=== PATIENT | male | born 1990 | race Caucasian/White ===

== ENCOUNTER 2017-04-12 21:30 | Emergency (ER) | payer SELFPAY ==
[~2017-04-12] VITALS: Ht 182.9 cm; Wt 84.0 kg
[2017-04-12 21:31] VITALS: BP 138/87; PULSE 105; RESP 16; TEMP 99.2; O2SAT 99
[2017-04-12] MEDS ORDERED: BACT800T5 PO (22:35)
[2017-04-12] MEDS ORDERED: CEPH-460 PO (22:35)
[2017-04-12] MEDS ORDERED: TRAM50TA PO (22:35)
[2017-04-12] MEDS ORDERED: IBUP800T23 PO (22:35)
--- NOTE | 2017-04-12 22:35 | PD ---
HPI Chief Complaint: Bite or Sting Time Seen by Provider: 22:33 Travel History International Travel<30 days: No Contact w/Intl Traveler<30days: No Traveled to known affect area: No History of Present Illness HPI 26-year-old male presents to emergency department for evaluation of a painful bump in his left axilla. Patient states he noticed it 2 days ago but has increased in size he is constantly noticing it due to the pain which is constant , exacerbated by touch.. Denies any new exposures. No trauma. No fever or chills. He has no other symptoms to report. PFSH Past Medical History Medical History: Denies Significant Hx Cardiovascular Problems: No Diminished Hearing: No Genitourinary: No Musculoskeletal: No Neurologic: No Reproductive: No Respiratory: No Tetanus Vaccination: Unknown Influenza Vaccination: No Past Surgical History Surgical History: No Previous Surgery Other Surgery: No Social History Alcohol Use: No Tobacco Use: No Substance Use: No Allergies-Medications (Allergen,Severity, Reaction): Coded Allergies: No Known Allergies (Verified , 10/07/13) Reported Meds & Prescriptions Reported Meds & Active Scripts Active Tramadol (Tramadol HCl) 50 Mg Tab 50 Mg PO Q6H PRN Ibuprofen 800 Mg Tab 800 Mg PO Q8H PRN Keflex (Cephalexin) 500 Mg Cap 500 Mg PO Q6H 5 Days Bactrim DS (Sulfamethoxazole-Trimethoprim) 800-160 Mg Tab 1 Tab PO BID Review of Systems Except as stated in HPI: all other systems reviewed are Neg Physical Exam Narrative GENERAL: Well-nourished, well-developed male patient in no acute distress SKIN: There is an indurated area in the [-] left axilla which measures about 3 cm in diameter. It is fluctuant but there is no pointing or drainage. There is a zone of inflammation around it but no lymphangitis. HEAD: Normocephalic. EYES: No scleral icterus. No injection or drainage. NECK: Supple, trachea midline. No JVD or lymphadenopathy. CARDIOVASCULAR: Regular rate and rhythm without murmurs, gallops, or rubs. RESPIRATORY: Breath sounds equal bilaterally. No accessory muscle use. MUSCULOSKELETAL: No cyanosis, or edema. Distal pulses are palpable. Cap refill within normal limits. Data Data Last Documented VS Vital Signs Date Time Temp Pulse Resp B/P Pulse Ox O2 Delivery O2 Flow Rate FiO2 04/12/17 21:31 99.2 105 16 138/87 99 Room Air Orders Sulfamet-Trimeth Ds 800-160 Mg (Bactrim (04/12/17 22:45) Cephalexin (Keflex) (04/12/17 22:45) Acetamin-Hydrocod 325-5 Mg ([place] 5-325 (04/12/17 22:45) Wound Culture And Gram Stain (04/12/17 22:31) MDM Medical Decision Making Medical Screen Exam Complete: Yes Emergency Medical Condition: Yes Medical Record Reviewed: Yes Differential Diagnosis Abscess versus cellulitis versus folliculitis versus erysipelas Narrative Course 26-year-old male presents versus apartment for evaluation of a painful lesion in his left axilla. Physical exam is consistent with an abscess. I&D is complete. Patient tolerated this well. He is given pain control and first dose of antibiotic here in emergency department. Culture sent. Patient is counseled on care and agrees to return immediately with any acute worsening symptoms. Procedures Procedure Narrative INCISION AND DRAINAGE OF ABSCESS: The area was prepped and was sterilely draped. Topical ethyl chloride was used to anesthetize the area. The area was properly anesthetized. A number 11 scalpel was used to make a 1-cm incision across the area of the abscess. Cultures were obtained. The abscess was drained an irrigated with normal saline. Sterile dressing applied. Patient tolerated this well. Diagnosis Primary Impression: Abscess of left axilla Referrals: Primary Care Physician Patient Instructions: Abscess Incision and Drainage (ED), General Instructions Additional Instructions: Warm compresses may help to resolve the area Follow-up with primary care provider Start antibiotic tomorrow morning. Take it until it is all gone Return immediately for any acute worsening of symptoms. Med/Other Pt SpecificInfo: Prescription(s) given Scripts Tramadol 50 Mg Tab50 Mg PO Q6H PRN (PAIN GREATER THAN 5) #15 TAB Ref 0 Prov:Amanda Purvis 04/12/17 Ibuprofen 800 Mg [id number] Mg PO Q8H PRN (Pain/Inflammation) #30 TAB Ref 0 Prov:Amanda Purvis 04/12/17 Cephalexin (Keflex)500 Mg [id number] Mg PO Q6H 5 Days Ref 0 Prov:Amanda Purvis 7/29/17 Sulfamethoxazole-Trimethoprim (Bactrim DS)800-160 Mg Tab1 Tab PO BID #20 TAB Ref 0 Prov:Amanda Purvis 04/12/17 Disposition: 01 DISCHARGE HOME Condition: Stable Amanda Purvis Apr 12, 2017 22:35
[2017-04-12] MEDS ORDERED: SULFAMETHOXAZOLE-TRIMETHOPRIM DS 800-160 MG TAB PO ONE (22:45)
[2017-04-12] MEDS ORDERED: ACETAMINOPHEN/HYDROcodone 325 MG/5 MG TAB PO ONE (22:45)
[2017-04-12] MEDS ORDERED: CEPHALEXIN MONOHYDRATE 500 MG CAP PO ONE (22:45)
== END 2017-04-12 22:51 | disposition home or self-care (01) ==
LOC: NEPD 21:30
DX: L02.412 Cutaneous abscess of left axilla (principal); A49.01 Methicillin susceptible Staphylococcus aureus infection, unspecified site
CPT/HCPCS: 10060; 86403; 87070; 87186; 87205

== ENCOUNTER 2018-02-26 22:26 | Inpatient (IN) | payer SELFPAY ==
[~2018-02-26] VITALS: Ht 180.3 cm; Wt 97.5 kg
[~2018-02-26 22:26] MED LIST: BACT800T5 PO; CEPH-460 PO; IBUP1TAB7 PO; TRAM50TA PO
[2018-02-26 23:38] VITALS: BP 133/75; PULSE 105; RESP 20; TEMP 98.9; O2SAT 100
[2018-02-27] MEDS ORDERED: SODIUM CHLOR 0.9% 1000 ML INJ 1,000 ML IV ONE (01:15)
[2018-02-27] MEDS ORDERED: VANCOMYCIN INJ 1,000 MG in SODIUM CHLOR 0.9% 250 ML INJ 250 ML IV ONE (01:15)
--- NOTE | 2018-02-27 01:20 | PD ---
HPI Chief Complaint: Skin Problem Time Seen by Provider: 00:38 Travel History International Travel<30 days: No Contact w/Intl Traveler<30days: No Traveled to known affect area: No History of Present Illness HPI Patient has had bite on his legs anterior tibial bilateral he was in [place] and he said he has been put on Bactrim for severe pain swelling and tenderness to the anterior tibial bilateral right leg has more pus and purulent and blood- filled blisters as well as surrounding cellulitis which is spreading up to just below the knee the right is worse than left but both legs have areas of cellulitis with papules pustules and there is some blood in some of the papules , pain and pressure like burning getting worse over last few days inspite of Bactrim twice daily for the last 5 days . Legs and redness and papules have not improved and he was advised by the ER down there [place] , that if it was not improving he should come to the hospital for IV antibiotic PFSH Past Medical History Cardiovascular Problems: No Diminished Hearing: No Genitourinary: No Musculoskeletal: No Neurologic: No Reproductive: No Respiratory: No Past Surgical History Other Surgery: No Social History Alcohol Use: No Tobacco Use: No Substance Use: No Allergies-Medications (Allergen,Severity, Reaction): Coded Allergies: *MDRO Multi-Drug Resistant Organism (Verified Adverse Reaction, Unknown, ) MRSA (arm) 04/12/17 Reported Meds & Prescriptions Reported Meds & Active Scripts Active Review of Systems Except as stated in HPI: all other systems reviewed are Neg Physical Exam Narrative GENERAL: Patient is obvious infection of his lower extremities right has anterior tibial pustules and hematoma filled papules SKIN: Warm and dry. HEAD: Atraumatic. Normocephalic. EYES: Pupils equal and round. No scleral icterus. No injection or drainage. ENT: No nasal bleeding or discharge. Mucous membranes pink and moist. NECK: Trachea midline. No JVD. CARDIOVASCULAR: Regular rate and rhythm. RESPIRATORY: No accessory muscle use. Clear to auscultation. Breath sounds equal bilaterally. GASTROINTESTINAL: Abdomen soft, non-tender, nondistended. Hepatic and splenic margins not palpable. MUSCULOSKELETAL: Extremities anterior tib-fib papules and pustules and blisters some of them filled with serosanguineous fluid bilateral R>L NEUROLOGICAL: Awake and alert. No obvious cranial nerve deficits. Motor grossly within normal limits. Five out of 5 muscle strength in the arms and legs. Normal speech. PSYCHIATRIC: Appropriate mood and affect; insight and judgment normal. Data Data Last Documented VS Vital Signs Date Time Temp Pulse Resp B/P (MAP) Pulse Ox O2 Delivery O2 Flow Rate FiO2 02/26/18 23:38 98.9 105 20 133/75 (94) 100 Orders Orders Complete Blood Count With Diff (02/27/18 01:15) Comprehensive Metabolic Panel (02/27/18 01:15) Blood Culture (02/27/18 01:15) Lactic Acid (02/27/18 01:15) Vancomycin Inj (Vancomycin Inj) (02/27/18 01:15) Sodium Chlor 0.9% 1000 Ml Inj (Ns 1000 M (02/27/18 01:15) Admit Order (Ed Use Only) (02/27/18 02:17) Vancomycin Consult Pharmacy (Vancomycin (02/27/18 02:30) Cefepime Inj (Maxipime Inj) (02/27/18 03:00) Admit To Inpatient (02/27/18 ) Vital Signs (Adult) Q4H (02/27/18 02:16) Activity Oob Ad Fifi (02/27/18 02:16) Intake + Output SUSAN.QSHIFT (02/27/18 02:16) Diet Regular Basic (02/27/18 Breakfast) Sodium Chlor 0.9% 1000 Ml Inj (Ns 1000 M (02/27/18 02:16) Sodium Chloride 0.9% Flush (Ns Flush) (02/27/18 02:30) Sodium Chloride 0.9% Flush (Ns Flush) (02/27/18 09:00) Metoclopramide Inj (Reglan Inj) (02/27/18 02:30) Comprehensive Metabolic Panel (02/28/18 06:00) Complete Blood Count With Diff (02/28/18 06:00) Mechanical Contraindication (02/27/18 02:16) Acetaminophen (Tylenol) (02/27/18 02:30) Acetamin-Hydrocod 325-5 Mg ([place] 5-325 (02/27/18 02:30) Docusate Sodium-Senna (Geovanna-Colace) (02/27/18 09:00) Magnesium Hydroxide Liq (Milk Of Magnesi (02/27/18 02:30) Sennosides (Senokot) (02/27/18 02:30) Bisacodyl Supp (Dulcolax Supp) (02/27/18 02:30) Lactulose Liq (Lactulose Liq) (02/27/18 02:30) Inpatient Certification (02/27/18 ) Morphine Inj (Morphine Inj) (02/27/18 02:45) Labs Laboratory Tests Test 02/27/18 01:30 White Blood Count 18.5 TH/MM3 Red Blood Count 4.86 MIL/MM3 Hemoglobin 14.4 GM/DL Hematocrit 41.4 % Mean Corpuscular Volume 85.2 FL Mean Corpuscular Hemoglobin 29.6 PG Mean Corpuscular Hemoglobin Concent 34.7 % Red Cell Distribution Width 12.5 % Platelet Count 335 TH/MM3 Mean Platelet Volume 8.0 FL Neutrophils (%) (Auto) 65.4 % Lymphocytes (%) (Auto) 24.0 % Monocytes (%) (Auto) 9.0 % Eosinophils (%) (Auto) 0.9 % Basophils (%) (Auto) 0.7 % Neutrophils # (Auto) 12.1 TH/MM3 Lymphocytes # (Auto) 4.4 TH/MM3 Monocytes # (Auto) 1.7 TH/MM3 Eosinophils # (Auto) 0.2 TH/MM3 Basophils # (Auto) 0.1 TH/MM3 CBC Comment DIFF FINAL Differential Comment Blood Urea Nitrogen 22 MG/DL Creatinine 1.18 MG/DL Random Glucose 86 MG/DL Total Protein 8.1 GM/DL Albumin 3.5 GM/DL Calcium Level 9.1 MG/DL Alkaline Phosphatase 90 U/L Aspartate Amino Transf (AST/SGOT) 10 U/L Alanine Aminotransferase (ALT/SGPT) 26 U/L Total Bilirubin 0.5 MG/DL Sodium Level 135 MEQ/L Potassium Level 3.5 MEQ/L Chloride Level 100 MEQ/L Carbon Dioxide Level 23.1 MEQ/L Anion Gap 12 MEQ/L Estimat Glomerular Filtration Rate 74 ML/MIN Lactic Acid Level 0.8 mmol/L [facility] Medical Decision Making Medical Screen Exam Complete: Yes Emergency Medical Condition: Yes Medical Record Reviewed: Yes Differential Diagnosis cellulitis vs Erythema Nodosum vs infected insect bites possible resistant staph Narrative Course pt failing outpt PO bactrim needs IV vanco ,, WBC serun is 18 blood cultures are pending Diagnosis Primary Impression: Cellulitis of leg Additional Impressions: Cellulitis of right leg Cellulitis of left lower leg Scripts Cephalexin (Keflex) 500 Mg Capsule 500 MG PO Q8H for Infection, #30 CAP 0 Refills Prov: Óscar Hillman MD 03/01/18 Clindamycin (Clindamycin) 300 Mg Cap 300 MG PO TID for Infection, #30 CAP 0 Refills Prov: Óscar Hillman MD 03/01/18 Wilfrido Baker MD Feb 27, 2018 01:19
[2018-02-27 01:52] LABS: AUTOMATED NEUTROPHIL # 12.1 TH/MM3 (1.8-7.7); BASOPHIL # 0.1 TH/MM3 (0-0.2); BASOPHIL % 0.7 % (0.0-2.0); EOSINOPHIL # 0.2 TH/MM3 (0-0.4); EOSINOPHIL % 0.9 % (0.0-4.0); HEMATOCRIT 41.4 % (39.0-51.0); HEMOGLOBIN 14.4 GM/DL (13.0-17.0); LYMPHOCYTE # 4.4 TH/MM3 (1.0-4.8); MEAN CELL VOLUME 85.2 FL (80.0-100.0); MEAN CORPUSCULAR HEMOGLOBIN 29.6 PG (27.0-34.0); MEAN CORPUSCULAR HGB CONC 34.7 % (32.0-36.0); MONOCYTE # 1.7 TH/MM3 (0-0.9); NEUT % 65.4 % (16.0-70.0); PLATELET COUNT 335 TH/MM3 (150-450); RED BLOOD COUNT 4.86 MIL/MM3 (4.50-5.90); RED CELL DISTRIBUTION WIDTH 12.5 % (11.6-17.2); WHITE BLOOD COUNT 18.5 TH/MM3 (4.0-11.0)
[2018-02-27 02:01] LABS: ALBUMIN 3.5 GM/DL (3.4-5.0); ALT (GPT) 26 U/L (12-78); AST (GOT) 10 U/L (15-37); BICARBONATE 23.1 MEQ/L (21.0-32.0); BLOOD UREA NITROGEN 22 MG/DL (7-18); CALCIUM 9.1 MG/DL (8.5-10.1); CHLORIDE 100 MEQ/L (98-107); CREATININE 1.18 MG/DL (0.60-1.30); GLOMERULAR FILTRATION RATE 74 ML/MIN (>89); GLUCOSE,RANDOM 86 MG/DL (74-106); SODIUM (NA) 135 MEQ/L (136-145)
[2018-02-27 02:03] LABS: ALKALINE PHOSPHATASE 90 U/L (45-117); TOTAL BILIRUBIN ADULT 0.5 MG/DL (0.2-1.0); TOTAL PROTEIN 8.1 GM/DL (6.4-8.2)
[2018-02-27] MEDS ORDERED: SENNOSIDES 8.6 MG TAB PO PRN (02:30)
[2018-02-27] MEDS ORDERED: Vancomycin Consult Pharmacy 1 EA OTHER SCH (02:30)
[2018-02-27] MEDS ORDERED: SODIUM CHLORIDE 0.9% FLUSH 10 ML FLUSH IV FLUSH PRN (02:30)
[2018-02-27] MEDS ORDERED: BISACODYL 10 MG SUPP RECTAL PRN (02:30)
[2018-02-27] MEDS ORDERED: METOCLOPRAMIDE HCL 10 MG/2 ML VIAL IV PUSH PRN (02:30)
[2018-02-27] MEDS ORDERED: ACETAMINOPHEN 325 MG TAB PO PRN (02:30)
[2018-02-27] MEDS ORDERED: MAGNESIUM HYDROXIDE SUSP 30 ML CUP PO PRN (02:30)
[2018-02-27] MEDS ORDERED: LACTULOSE SYRUP 20 GM/30 ML CUP PO PRN (02:30)
--- NOTE | 2018-02-27 02:47 | HHI.HP ---
[facility] Physician No Primary Care Physician Admission Diagnosis cellulitis failing outpt therapy Diagnoses: (1) Abscess of leg Diagnosis: Principal (2) Failure of outpatient treatment Diagnosis: Principal (3) Dehydration Diagnosis: Principal Travel History International Travel<30 Days: No Contact w/Intl Traveler <30 Da: No Traveled to Known Affected Are: No History of Present Illness This is a 27-year-old male with no significant PMH who presented to the ER with complaints of bilateral lower extremity pain and swelling due to infection. States he was in [place] recently and noticed "spider bites" to his legs. Was seen at ER in [place] and started on Bactrim bid which he has been taking x5 days, reports compliance w/ medications, however notes worsening lower extremity infection/pain. Pain is severe, constant, 10/10, non-radiating, worse w/ ambulation. Denies fever or chills. On arrival, BP 133/75, HR 105, O2 sat 100% on RA, Afebrile. WBC 18.5. Chemistry essentially unremarkable except for BUN 22, GFR 74. S/p Vanc/Blood Cultures in ER. Review of Systems Except as stated in HPI: all other systems reviewed are Neg ROS: 14 point review of systems otherwise negative. Past Family Social History Past Medical History PMH: None Past Surgical History PAST SURGICAL HISTORY: None Allergies: Coded Allergies: *MDRO Multi-Drug Resistant Organism (Verified Adverse Reaction, Unknown, ) MRSA (arm) 04/12/17 Family History PAST FAMILY HISTORY: Reviewed. No h/o DM or CAD Social History PAST SOCIAL HISTORY: Negative for alcohol, tobacco or drugs. Physical Exam Vital Signs Vital Signs Date Time Temp Pulse Resp B/P (MAP) Pulse Ox O2 Delivery O2 Flow Rate FiO2 02/26/18 23:38 98.9 105 20 133/75 (94) 100 Physical Exam PE: GENERAL: Very pleasant young white male in no acute distress. +sunburn HEENT: PERRLA, EOMI. No scleral icterus or conjunctival pallor. No lid lag or facial droop. CARDIOVASCULAR: Regular rate and rhythm. No obvious murmurs to auscultation. No chest tenderness to palpation. RESPIRATORY: No obvious rhonchi or wheezing. Clear to auscultation. Breath sounds equal bilaterally. GASTROINTESTINAL: Abdomen soft, non-tender, nondistended. BS normal. MUSCULOSKELETAL: Extremities without clubbing, cyanosis, or edema. No obvious deformities. Bilateral lower extremities w/ swelling/erythema, multiple pustules NEUROLOGICAL: Awake, alert and oriented x4. No focal neurologic deficits. Moving both upper and lower extremities spontaneously. Laboratory Laboratory Tests Test 02/27/18 01:30 White Blood Count 18.5 Red Blood Count 4.86 Hemoglobin 14.4 Hematocrit 41.4 Mean Corpuscular Volume 85.2 Mean Corpuscular Hemoglobin 29.6 Mean Corpuscular Hemoglobin Concent 34.7 Red Cell Distribution Width 12.5 Platelet Count 335 Mean Platelet Volume 8.0 Neutrophils (%) (Auto) 65.4 Lymphocytes (%) (Auto) 24.0 Monocytes (%) (Auto) 9.0 Eosinophils (%) (Auto) 0.9 Basophils (%) (Auto) 0.7 Neutrophils # (Auto) 12.1 Lymphocytes # (Auto) 4.4 Monocytes # (Auto) 1.7 Eosinophils # (Auto) 0.2 Basophils # (Auto) 0.1 CBC Comment DIFF FINAL Differential Comment Blood Urea Nitrogen 22 Creatinine 1.18 Random Glucose 86 Total Protein 8.1 Albumin 3.5 Calcium Level 9.1 Alkaline Phosphatase 90 Aspartate Amino Transf (AST/SGOT) 10 Alanine Aminotransferase (ALT/SGPT) 26 Total Bilirubin 0.5 Sodium Level 135 Potassium Level 3.5 Chloride Level 100 Carbon Dioxide Level 23.1 Anion Gap 12 Estimat Glomerular Filtration Rate 74 Lactic Acid Level 0.8 Date/Time Source Procedure Growth Status 02/27/18 01:30 Blood Peripheral Aerobic Blood Culture Pending Received 02/27/18 01:30 Blood Peripheral Anaerobic Blood Culture Pending Received Result Diagram: 02/27/1812902/27/18129 Caprini VTE Risk Assessment Caprini VTE Risk Assessment: No/Low Risk (score <= 1) VTE [facility] Contraindication: LE injury/wound Caprini Risk Assessment Model Point Value = 1 Point Value = 2 Point Value = 3 Point Value = 5 Age 41-60 Minor surgery BMI > 25 kg/m2 Swollen legs Varicose veins or History of unexplained or recurrent spontaneous Oral contraceptives or hormone replacement Sepsis (< 1 month) Serious lung disease, including pneumonia (< 1 month) Abnormal pulmonary function Acute myocardial infarction Congestive heart failure (< 1 month) History of inflammatory bowel disease Medical patient at bed rest Age 61-74 Arthroscopic surgery Major open surgery (> 45 min) Laparoscopic surgery (> 45 min) Malignancy Confined to bed (> 72 hours) Immobilizing plaster cast Central venous access Age >= 75 History of VTE Family history of VTE Factor V Leiden Prothrombin [id number] Lupus anticoagulant Anticardiolipin antibodies Elevated serum homocysteine Heparin-induced thrombocytopenia Other congenital or acquired thrombophilia Stroke (< 1 month) Elective arthroplasty Hip, pelvis, or leg fracture Acute spinal cord injury (< 1 month) Prophylaxis Regimen Total Risk Factor Score Risk Level Prophylaxis Regimen 0-1 Low Early ambulation 2 Moderate Order ONE of the following: *Sequential Compression Device (SCD) *Heparin 5000 units SQ BID 3-4 Higher Order ONE of the following medications: *Heparin 5000 units SQ TID *Enoxaparin/Lovenox 40 mg SQ daily (WT < 150 kg, CrCl > 30 mL/min) *Enoxaparin/Lovenox 30 mg SQ daily (WT < 150 kg, CrCl > 10-29 mL/min) *Enoxaparin/Lovenox 30 mg SQ BID (WT < 150 kg, CrCl > 30 mL/min) AND/OR *Sequential Compression Device (SCD) 5 or more Highest Order ONE of the following medications: *Heparin 5000 units SQ TID (Preferred with Epidurals) *Enoxaparin/Lovenox 40 mg SQ daily (WT < 150 kg, CrCl > 30 mL/min) *Enoxaparin/Lovenox 30 mg SQ daily (WT < 150 kg, CrCl > 10-29 mL/min) *Enoxaparin/Lovenox 30 mg SQ BID (WT < 150 kg, CrCl > 30 mL/min) AND *Sequential Compression Device (SCD) Assessment and Plan Problem List: (1) Abscess of leg ICD Code: L02.419 - Cutaneous abscess of limb, unspecified (2) Failure of outpatient treatment ICD Code: Z78.9 - Other specified health status (3) Dehydration ICD Code: E86.0 - Dehydration Assessment and Plan A/P: 1. Bilateral LE Cellulitis/Abscess: c/o "spider bites" to bilateral lower extremities while in [place], now w/ progression despite antibiotics. WBC 18, afebrile. S/p Vanc in ER, will continue w/ Vanc, add Cefepime, follow up cultures. IVF for hydration. 2. Failed Outpatient Tx: on Bactrim bid x5 days w/ no improvement, will continue w/ IV Abx, follow up cultures as above. 3. Dehydration: BUN 22, GFR 74, secondary to infection, IVF for hydration, repeat labs in am. 4. DVT Prophylaxis: Mechanical contraindication due to wounds. Pt ambulatory 5. Social work for d/c planning as needed 6. Case discussed w/ ER physician at length, labs/records/imaging reviewed by me. Physician Certification 2 Midnight Certification Type: Admission for Inpatient Services Order for Inpatient Services The services are ordered in accordance with Medicare regulations or non- Medicare payer requirements, as applicable. In the case of services not specified as inpatient-only, they are appropriately provided as inpatient services in accordance with the 2-midnight benchmark. Estimated LOS (days): 2 days is the estimated time the patient will need to remain in the hospital, assuming treatment plan goals are met and no additional complications. Post-Hospital Plan: Not yet determined Kitty Escamilla MD Feb 27, 2018 02:47
[2018-02-27 04:00] VITALS: BP 137/77; PULSE 95; RESP 18; TEMP 98.4; O2SAT 97
[2018-02-27] MEDS: ACETAMINOPHEN/HYDROcodone 325 MG/5 MG TAB PO PRN ×3 (04:21→17:34)
[2018-02-27] MEDS: SODIUM CHLOR 0.9% 1000 ML INJ 1,000 ML IV SCH ×2 (04:22→15:13)
[2018-02-27] MEDS: CEFEPIME INJ 1,000 MG in SODIUM CHLORIDE 0.9% INJ 100 ML IV SCH ×2 (04:23→17:29)
[2018-02-27 08:00] VITALS: BP 111/54; PULSE 84; RESP 18; TEMP 97.8; O2SAT 98
[2018-02-27] MEDS: SODIUM CHLORIDE 0.9% FLUSH 10 ML FLUSH IV FLUSH SCH (08:57)
[2018-02-27] MEDS: DOCUSATE SODIUM 50 MG/SENNA 8.6 MG TAB PO SCH ×2 (08:57→21:00)
[2018-02-27 12:24] VITALS: BP 129/62; PULSE 78; RESP 18; TEMP 98.1; O2SAT 93
--- NOTE | 2018-02-27 14:41 | HHI.FPPN ---
Addendum to progress note ADDENDUM Reason for addendum: Additonal documentation Additional information The patient complains of bilateral extremity pain and swelling. Denies chest pain or shortness of breath, denies fevers or chills. Patient is awake alert and oriented 3. There is swelling in bilateral extremity with erythema in the anterior ramirez more pronounced on the right lower extremity compared to the left. There is also a bullae observed on the right lower extremity. Continue IV antibiotics. The patient is on IV vancomycin IV cefepime. Continue pain control with oral Donalds and IV morphine. I will consult infectious disease and order venous Doppler of bilateral lower extremities to rule out DVT as well as a soft tissue ultrasound of bilateral extremities to rule out fluid collection. Jeffery Arnold MD Feb 27, 2018 14:41
[2018-02-27] MEDS: VANCOMYCIN INJ 1,500 MG in SODIUM CHLORID 0.9% 500 ML INJ 500 ML IV SCH (15:13)
[2018-02-27] MEDS: MORPHINE SULFATE 4 MG/ML INJ IV PRN (15:13)
[2018-02-27 16:01] VITALS: BP 124/64; PULSE 74; RESP 18; TEMP 97.9; O2SAT 97
[2018-02-27 20:00] VITALS: BP 119/76; PULSE 71; RESP 18; TEMP 98.8; O2SAT 97
--- NOTE | 2018-02-27 21:28 | RADRPT ---
EXAM DATE: 02/27/2018 9:16 PM EDT AGE/SEX: 27 years / Male INDICATIONS: Bilateral leg swelling. CLINICAL DATA: This is the patient's initial encounter. Patient reports that signs and symptoms have been present for 3 days and indicates a pain score of 9/10. MEDICAL/SURGICAL HISTORY: . Leg swelling. Recent spider bites to lower extremities. None. COMPARISON: No prior exams available for comparison. TECHNIQUE: Venous ultrasound of both lower extremities was performed from the inguinal ligament to t he proximal calf. Real-time, color Doppler and spectral tracing, compression and augmentation techni ques were used. FINDINGS: Right Leg: Normal compression of the deep venous system from the inguinal region to the proximal ruddy f. No echogenic clot is seen. Normal response of the venous system to augmentation and respiration. Left Leg: Normal compression of the deep venous system from the inguinal region to the proximal calf . No echogenic clot is seen. Normal response of the venous system to augmentation and respiration. Other: None. CONCLUSION: 1. Negative for deep venous thrombosis. Electronically signed by: Pedrito Macias MD 02/27/2018 9:27 PM EDT
--- NOTE | 2018-02-27 22:32 | RADRPT ---
EXAM DATE: 02/27/2018 9:38 PM EDT AGE/SEX: 27 years / Male INDICATIONS: Localized swelling due to spider bite. CLINICAL DATA: This is the patient's initial encounter. Patient reports that signs and symptoms have been present for 3 days and indicates a pain score of 9/10. Location: Laterality: MEDICAL/SURGICAL HISTORY: . Leg swelling. Recent spider bites to lower extremities. None. COMPARISON: No prior exams available for comparison. FINDINGS: There are multiple complex small fluid collections in the subcutaneous tissues of the right lower ant erior leg with increased surrounding blood flow. Findings are most characteristic of a cellulitis wit h multiple small abscesses, largest measuring about 1.7 x 1.1 x 0.9 cm. CONCLUSION: 1. Cellulitis lower anterior right leg with several small complex fluid collections that may represe nt small abscesses. Electronically signed by: Pedrito Macias MD 02/27/2018 10:31 PM EDT
--- NOTE | 2018-02-27 22:34 | RADRPT ---
EXAM DATE: 02/27/2018 9:42 PM EDT AGE/SEX: 27 years / Male INDICATIONS: Localized swelling, status post spider bites. CLINICAL DATA: This is the patient's initial encounter. Patient reports that signs and symptoms have been present for 3 days and indicates a pain score of 8/10. Location: Laterality: MEDICAL/SURGICAL HISTORY: . Leg swelling. Recent spider bites to lower extremities. None. COMPARISON: No prior exams available for comparison. FINDINGS: There is some increased blood flow and several small fluid collections are complex in the lower leg m edially. This could represent phlegmonous masses or early abscesses. CONCLUSION: 1. Small phlegmonous masses or early abscesses in the lower left leg anterior and medial largest ginny suring about 1.5 x 1.5 x 0.3 cm and 0.9 x 1.1 x 0.5 cm. Electronically signed by: Pedrito Macias MD 02/27/2018 10:33 PM EDT
[2018-02-28] VITALS: BP 125/77; PULSE 77; RESP 18; TEMP 98.5; O2SAT 100
[2018-02-28] MEDS: MORPHINE SULFATE 4 MG/ML INJ IV PRN ×6 (00:31→21:58)
[2018-02-28] MEDS: SODIUM CHLORIDE 0.9% FLUSH 10 ML FLUSH IV FLUSH SCH ×3 (00:31→21:59)
[2018-02-28] MEDS: VANCOMYCIN INJ 1,500 MG in SODIUM CHLORID 0.9% 500 ML INJ 500 ML IV SCH ×2 (00:32→13:51)
[2018-02-28 04:00] VITALS: BP 106/64; PULSE 65; RESP 18; TEMP 98; O2SAT 96
[2018-02-28] MEDS: CEFEPIME INJ 1,000 MG in SODIUM CHLORIDE 0.9% INJ 100 ML IV SCH ×2 (04:41→16:36)
[2018-02-28 08:00] VITALS: BP 119/63; PULSE 68; RESP 18; TEMP 98.4; O2SAT 98
[2018-02-28] MEDS: DOCUSATE SODIUM 50 MG/SENNA 8.6 MG TAB PO SCH ×2 (09:00→21:58)
[2018-02-28] MEDS: SODIUM CHLOR 0.9% 1000 ML INJ 1,000 ML IV SCH (09:19)
--- NOTE | 2018-02-28 10:46 | HHI.PR ---
Subjective Remarks Follow-up bilateral lower extremity cellulitis February 28, 2018-patient seen and examined, complains of bilateral lower extremity pain, afebrile. No other issues Objective Vitals Vital Signs Date Time Temp Pulse Resp B/P (MAP) Pulse Ox O2 Delivery O2 Flow Rate FiO2 02/28/18 08:00 98.4 68 18 119/63 (81) 98 02/28/18 04:00 98.0 65 18 106/64 (78) 96 02/28/18 00:00 98.5 77 18 125/77 (93) 100 02/27/18 20:00 98.8 71 18 119/76 (90) 97 02/27/18 16:01 97.9 74 18 124/64 (84) 97 02/27/18 12:24 98.1 78 18 129/62 (84) 93 I/O 02/27/18 02/27/18 02/27/18 02/28/18 02/28/18 02/28/18 07:00 15:00 23:00 07:00 15:00 23:00 Intake Total 1000 ml 1615 ml Balance 1000 ml 1615 ml Intake IV Total 1000 ml 1615 ml # Voids 1 3 1 3 Result Diagram: 02/27/18 0130 02/27/18 0130 Imaging Last Impressions Lower Extremity Ultrasound 02/27/18 0000 Signed Impressions: CONCLUSION: 1. Negative for deep venous thrombosis. Objective Remarks GENERAL: NAD SKIN: Warm and dry. Bilateral lower extremity erythema, scab and pustules HEAD: Normocephalic. EYES: No scleral icterus. No injection or drainage. NECK: Supple, trachea midline. No JVD or lymphadenopathy. CARDIOVASCULAR: Regular rate and rhythm without murmurs, gallops, or rubs. RESPIRATORY: Breath sounds equal bilaterally. No accessory muscle use. GASTROINTESTINAL: Abdomen soft, non-tender, nondistended. MUSCULOSKELETAL: No cyanosis, or edema. BACK: Nontender without obvious deformity. No CVA tenderness. A/P Problem List: (1) Abscess of leg ICD Code: L02.419 - Cutaneous abscess of limb, unspecified (2) Failure of outpatient treatment ICD Code: Z78.9 - Other specified health status (3) Dehydration ICD Code: E86.0 - Dehydration Assessment and Plan 27-year-old man with 1. Bilateral LE Cellulitis/Abscess Failed Outpatient Tx c/o "spider bites" to bilateral lower extremities while in [place], now w/ progression despite antibiotics. continue w/ Vanc and Cefepime, follow up cultures. 2. Dehydration: BUN 22, GFR 74, secondary to infection, IVF for hydration 3. DVT Prophylaxis: Mechanical contraindication due to wounds. Pt ambulatory Óscar Hillman MD Feb 28, 2018 10:45
[2018-02-28 11:08] LABS: AUTOMATED NEUTROPHIL # 7.5 TH/MM3 (1.8-7.7); BASOPHIL # 0.1 TH/MM3 (0-0.2); BASOPHIL % 0.8 % (0.0-2.0); EOSINOPHIL # 0.2 TH/MM3 (0-0.4); HEMATOCRIT 38.6 % (39.0-51.0); MEAN CELL VOLUME 86.5 FL (80.0-100.0); MEAN CORPUSCULAR HEMOGLOBIN 29.1 PG (27.0-34.0); MEAN CORPUSCULAR HGB CONC 33.7 % (32.0-36.0); MEAN PLATELET VOLUME 7.8 FL (7.0-11.0); MONO % 6.1 % (0.0-8.0); MONOCYTE # 0.6 TH/MM3 (0-0.9); NEUT % 72.1 % (16.0-70.0); PLATELET COUNT 290 TH/MM3 (150-450); RED BLOOD COUNT 4.47 MIL/MM3 (4.50-5.90); RED CELL DISTRIBUTION WIDTH 12.7 % (11.6-17.2); WHITE BLOOD COUNT 10.4 TH/MM3 (4.0-11.0)
[2018-02-28] MEDS ORDERED: TEMAZEPAM 15 MG CAP PO PRN (11:30)
[2018-02-28] MEDS ORDERED: ACETAMINOPHEN 325 MG TAB PO PRN (11:30)
[2018-02-28 11:44] LABS: ALBUMIN 2.8 GM/DL (3.4-5.0); ALKALINE PHOSPHATASE 64 U/L (45-117); ALT (GPT) 26 U/L (12-78); AST (GOT) 13 U/L (15-37); BICARBONATE 23.8 MEQ/L (21.0-32.0); BLOOD UREA NITROGEN 8 MG/DL (7-18); CALCIUM 8.6 MG/DL (8.5-10.1); CHLORIDE 105 MEQ/L (98-107); CREATININE 0.84 MG/DL (0.60-1.30); GLOMERULAR FILTRATION RATE 110 ML/MIN (>89); GLUCOSE,RANDOM 110 MG/DL (74-106); SODIUM (NA) 139 MEQ/L (136-145); TOTAL BILIRUBIN ADULT 0.4 MG/DL (0.2-1.0); TOTAL PROTEIN 6.8 GM/DL (6.4-8.2)
[2018-02-28 12:37] VITALS: BP 124/69; PULSE 73; RESP 20; TEMP 98.2; O2SAT 97
[2018-02-28] MEDS ORDERED: PHARMACY ORDERED LAB ONE (12:45)
[2018-02-28] MEDS: ACETAMINOPHEN/HYDROcodone 325 MG/5 MG TAB PO PRN (13:51)
[2018-02-28 16:20] VITALS: BP 121/64; PULSE 81; RESP 18; TEMP 98; O2SAT 97
[2018-02-28 20:00] VITALS: BP 137/87; PULSE 79; RESP 18; TEMP 98.2; O2SAT 97
[2018-03-01] VITALS: BP 152/90; PULSE 65; RESP 18; TEMP 97.9; O2SAT 100
[2018-03-01] MEDS: VANCOMYCIN INJ 1,750 MG in SODIUM CHLORID 0.9% 500 ML INJ 500 ML IV SCH ×2 (00:58→12:50)
[2018-03-01 04:00] VITALS: BP 120/67; PULSE 79; RESP 18; TEMP 97.8; O2SAT 99
[2018-03-01] MEDS: CEFEPIME INJ 1,000 MG in SODIUM CHLORIDE 0.9% INJ 100 ML IV SCH ×2 (04:15→15:00)
[2018-03-01] MEDS: MORPHINE SULFATE 4 MG/ML INJ IV PRN (07:57)
[2018-03-01] MEDS: DOCUSATE SODIUM 50 MG/SENNA 8.6 MG TAB PO SCH (07:57)
[2018-03-01] MEDS: SODIUM CHLORIDE 0.9% FLUSH 10 ML FLUSH IV FLUSH SCH (07:58)
[2018-03-01 08:00] VITALS: BP 112/67; PULSE 68; RESP 18; TEMP 98.1; O2SAT 97
[2018-03-01 08:49] LABS: CREATININE 0.85 MG/DL (0.60-1.30)
--- NOTE | 2018-03-01 10:31 | HHI.PR ---
Subjective Remarks Follow-up bilateral lower extremity cellulitis February 28, 2018-patient seen and examined, complains of bilateral lower extremity pain, afebrile. No other issues March 01, 2018-patient seen and examined, reports significant improvement of bilateral lower extremity pain and swelling as well as erythema. Objective Vitals Vital Signs Date Time Temp Pulse Resp B/P (MAP) Pulse Ox O2 Delivery O2 Flow Rate FiO2 03/01/18 08:00 98.1 68 18 112/67 (82) 97 03/01/18 04:00 97.8 79 18 120/67 (84) 99 03/01/18 00:00 97.9 65 18 152/90 (110) 100 02/28/18 20:00 98.2 79 18 137/87 (104) 97 02/28/18 16:20 98.0 81 18 121/64 (83) 97 02/28/18 12:37 98.2 73 20 124/69 (87) 97 I/O 02/28/18 02/28/18 02/28/18 03/01/18 03/01/18 03/01/18 07:00 15:00 23:00 07:00 15:00 23:00 # Voids 3 3 Result Diagram: 02/28/18 1016 03/01/18 0754 Imaging Last Impressions Lower Extremity Ultrasound 02/27/18 0000 Signed Impressions: CONCLUSION: 1. Negative for deep venous thrombosis. Objective Remarks GENERAL: NAD SKIN: Warm and dry. Bilateral lower extremity erythema, scab and pustules improving HEAD: Normocephalic. EYES: No scleral icterus. No injection or drainage. NECK: Supple, trachea midline. No JVD or lymphadenopathy. CARDIOVASCULAR: Regular rate and rhythm without murmurs, gallops, or rubs. RESPIRATORY: Breath sounds equal bilaterally. No accessory muscle use. GASTROINTESTINAL: Abdomen soft, non-tender, nondistended. MUSCULOSKELETAL: No cyanosis, or edema. BACK: Nontender without obvious deformity. No CVA tenderness. Procedures None A/P Problem List: (1) Abscess of leg ICD Code: L02.419 - Cutaneous abscess of limb, unspecified (2) Failure of outpatient treatment ICD Code: Z78.9 - Other specified health status (3) Dehydration ICD Code: E86.0 - Dehydration Assessment and Plan 27-year-old man with 1. Bilateral LE Cellulitis/Abscess c/o "spider bites" to bilateral lower extremities while in [place], now w/ progression despite antibiotics. Improving currently w/ Vanc and Cefepime, follow up cultures. Will discharge home on p.o. antibiotics 2. Dehydration: Resolved 3. DVT Prophylaxis: Mechanical contraindication due to wounds. Pt ambulatory Óscar Hillman MD Mar 01, 2018 10:31
[2018-03-01] MEDS ORDERED: CEPH-460 PO (10:33)
[2018-03-01] MEDS ORDERED: CLIN300C5 PO (10:33)
--- NOTE | 2018-03-01 10:34 | HHI.DS ---
Discharge Summary Admission Date Feb 27, 2018 at 02:19 Discharge Date: Mar 01, 2018 Admitting Diagnosis cellulitis failing outpt therapy (1) Abscess of leg ICD Code: L02.419 - Cutaneous abscess of limb, unspecified (2) Failure of outpatient treatment ICD Code: Z78.9 - Other specified health status (3) Dehydration ICD Code: E86.0 - Dehydration Procedures None Brief History - From Admission This is a 27-year-old male with no significant PMH who presented to the ER with complaints of bilateral lower extremity pain and swelling due to infection. States he was in [place] recently and noticed "spider bites" to his legs. Was seen at ER in [place] and started on Bactrim bid which he has been taking x5 days, reports compliance w/ medications, however notes worsening lower extremity infection/pain. Pain is severe, constant, 10/10, non-radiating, worse w/ ambulation. Denies fever or chills. On arrival, BP 133/75, HR 105, O2 sat 100% on RA, Afebrile. WBC 18.5. Chemistry essentially unremarkable except for BUN 22, GFR 74. S/p Vanc/Blood Cultures in ER. CBC/BMP: 02/28/18 1016 03/01/18 0754 Significant Findings Laboratory Tests Test 02/27/18 01:30 02/28/18 10:16 02/28/18 12:14 03/01/18 07:54 White Blood Count 18.5 TH/MM3 (4.0-11.0) Monocytes (%) (Auto) 9.0 % (0.0-8.0) Neutrophils # (Auto) 12.1 TH/MM3 (1.8-7.7) Monocytes # (Auto) 1.7 TH/MM3 (0-0.9) Blood Urea Nitrogen 22 MG/DL (7-18) Aspartate Amino Transf (AST/SGOT) 10 U/L (15-37) 13 U/L (15-37) Sodium Level 135 MEQ/L (136-145) Estimat Glomerular Filtration Rate 74 ML/MIN (>89) Red Blood Count 4.47 MIL/MM3 (4.50-5.90) Hematocrit 38.6 % (39.0-51.0) Neutrophils (%) (Auto) 72.1 % (16.0-70.0) Random Glucose 110 MG/DL (74-106) Albumin 2.8 GM/DL (3.4-5.0) Imaging Last Impressions Lower Extremity Ultrasound 02/27/18 0000 Signed Impressions: CONCLUSION: 1. Negative for deep venous thrombosis. PE at Discharge GENERAL: NAD SKIN: Warm and dry. Bilateral lower extremity erythema, scab and pustules improving HEAD: Normocephalic. EYES: No scleral icterus. No injection or drainage. NECK: Supple, trachea midline. No JVD or lymphadenopathy. CARDIOVASCULAR: Regular rate and rhythm without murmurs, gallops, or rubs. RESPIRATORY: Breath sounds equal bilaterally. No accessory muscle use. GASTROINTESTINAL: Abdomen soft, non-tender, nondistended. MUSCULOSKELETAL: No cyanosis, or edema. BACK: Nontender without obvious deformity. No CVA tenderness. Hospital Course While in hospital, patient was treated for; 1. Bilateral LE Cellulitis/Abscess c/o "spider bites" to bilateral lower extremities while in [place], now w/ progression despite antibiotics. Improving currently w/ Vanc and Cefepime. Will discharge home on p.o. antibiotics 2. Dehydration: Resolved with IV fluid hydration 3. DVT Prophylaxis: Mechanical contraindication due to wounds. Pt ambulatory Pt Condition on Discharge: Good Discharge Disposition: Discharge Home Discharge Time: <= 30 minutes Discharge Instructions DIET: Follow Instructions for: Heart Healthy Diet Activities you can perform: Regular-No Restrictions Follow up Referrals: PCP Follow-up - 1 Week New Medications: Cephalexin (Keflex) 500 Mg Capsule 500 MG PO Q8H for Infection, #30 CAP 0 Refills Clindamycin (Clindamycin) 300 Mg Cap 300 MG PO TID for Infection, #30 CAP 0 Refills Discontinued Medications: Sulfamethoxazole-Trimethoprim (Bactrim DS) 800-160 Mg Tab 1 TAB PO BID for Infection, #20 TAB 0 Refills Óscar Hillman MD Mar 01, 2018 10:34
[2018-03-01 12:00] VITALS: BP 116/72; PULSE 87; RESP 18; TEMP 98.6; O2SAT 97
[2018-03-01] MEDS: ACETAMINOPHEN/HYDROcodone 325 MG/5 MG TAB PO PRN (13:04)
[2018-03-03] MEDS ORDERED: PHARMACY ORDERED LAB ONE (00:45)
== END 2018-03-01 16:15 | disposition home or self-care (01) | DRG 603 ==
LOC: NEPE 22:26 → NEDA 02-27 02:19 → N05B 02-27 03:25
PROVIDERS: ADMIT Hospitalist; ATTEND Hospitalist
DX: L02.416 Cutaneous abscess of left lower limb (principal); E86.0 Dehydration; L03.116 Cellulitis of left lower limb; L03.115 Cellulitis of right lower limb; L02.415 Cutaneous abscess of right lower limb
CPT/HCPCS: 76882; 80053; 80202; 82565; 83605; 85025; 87040; 93970; 99285; J0692; J2270; J3370; J7030; J7040; J7050